=== PATIENT | female | born 1990 | race Caucasian/White ===

== ENCOUNTER 2017-05-11 21:39 | Emergency (ER) | payer MEDICAID ==
[2017-05-11 21:46] VITALS: BP 127/77; TEMP 98.4; O2SAT 99
[2017-05-11] MEDS ORDERED: Naproxen 550 mg Tab PO STA (22:30)
[2017-05-11] MEDS ORDERED: Naproxen 550 mg Tab PO ONE (22:50)
--- NOTE | 2017-05-11 22:57 | C.PDOC ---
Time Seen by Provider: 05/11/17 22:08 Chief Complaint (Nursing): Chest Pain History Per: Patient, Family Onset/Duration Of Symptoms: Days (1) Current Symptoms Are (Timing): Gone Context: Other (Pt had URI symptoms a few days ago that resolved) Severity: Moderate Quality: "Pain" Associated Symptoms: denies: Nausea, Dyspnea, Diaphoresis, Syncope Modifying Factors: Other Indicated Below Additional History Per: Prior Records Past Medical History Reviewed: Historical Data, Nursing Documentation, Vital Signs Vital Signs: Last Vital Signs Temp 98.4 F 05/11/17 21:43 Pulse 80 05/11/17 22:52 Resp 18 05/11/17 21:43 BP 127/77 05/11/17 21:43 Pulse Ox 99 05/11/17 21:43 - Medical History PMH: No Chronic Diseases Surgical History: No Surg Hx Family History: States: Diabetes, Hypertension - Social History Hx Tobacco Use: No Hx Alcohol Use: Yes Hx Substance Use: No - Immunization History Hx Tetanus Toxoid Vaccination: No Hx Influenza Vaccination: No Hx Pneumococcal Vaccination: No Review Of Systems Except As Marked, All Systems Reviewed And Found Negative. Constitutional: Negative for: Fever, Weakness Respiratory: Negative for: Hemoptysis Gastrointestinal: Negative for: Vomiting, Abdominal Pain Musculoskeletal: Negative for: Neck Pain, Leg Pain Skin: Negative for: Rash Neurological: Negative for: Weakness, Numbness, Seizures, Altered Mental Status Physical Exam - Physical Exam Appears: Non-toxic, No Acute Distress Skin: Normal Color, Warm, Dry, No Rash Head: Atraumatic, Normacephalic Eye(s): bilateral: Normal Inspection, PERRL, EOMI Neck: Normal ROM, Supple Cardiovascular: Rhythm Regular Respiratory: Normal Breath Sounds, No Accessory Muscle Use Gastrointestinal/Abdominal: Soft, No Tenderness Back: No CVA Tenderness Extremity: Normal ROM, No Pedal Edema, No Calf Tenderness Neurological/Psych: Oriented x3, Normal Motor, Normal Sensation ED Course And Treatment ECG: Interpreted By Me, Viewed By Me ECG Rhythm: Sinus Rhythm ECG Interpretation: No Acute Changes Rate From EC O2 Sat by Pulse Oximetry: 99 Pulse Ox Interpretation: Normal - Radiology CXR: Interpreted by Me, Viewed By Me CXR Interpretation: Yes: No Acute Disease, Heart Size (wnl) Reassessment Condition: Improved Medical Decision Making Medical Decision Making: PERC rule negative. Disposition Counseled Patient/Family Regarding: Studies Performed, Diagnosis, Need For Followup, Rx Given - Disposition Disposition: HOME/ ROUTINE Disposition Time: 22:59 Condition: IMPROVED Additional Instructions: Follow up with your doctor for further evaluation and treatment. Return to the ER if you develop worsening of symptoms or if you have any other concerns. Prescriptions: Naproxen [Naprosyn] 1 tab PO BID PRN #20 tab PRN Reason: Pain Instructions: Noncardiac Chest Pain (ED) - Clinical Impression Clinical Impression: Non-cardiac chest pain
[2017-05-11 23:17] VITALS: PULSE 76; RESP 20
--- NOTE | 2017-05-12 08:14 | RAD ---
HISTORY: Chest pain COMPARISON: No prior. FINDINGS: LUNGS: Mild venous congestion. Patchy bibasilar airspace opacities likely related to breast shadows. Bibasilar breast and nipple shadows. Correlation with nipple markers and or lateral view may be helpful. PLEURA: No significant pleural effusion identified, no pneumothorax apparent. CARDIOVASCULAR: Normal. OSSEOUS STRUCTURES: No significant abnormalities. VISUALIZED UPPER ABDOMEN: Normal. OTHER FINDINGS: None. IMPRESSION: Mild venous congestion. Patchy bibasilar airspace opacities likely related to breast shadows. Bibasilar breast and nipple shadows. Correlation with nipple markers and or lateral view may be helpful.
--- NOTE | 2017-05-12 10:59 | CARD ---
APPROVED REPORT EKG Measurement Heart [id number] <Conclusion> Normal sinus rhythm Normal ECG
== END 2017-05-11 23:16 | disposition home or self-care (01) ==
LOC: C.ER 21:39 → SUPCPDRO 21:39 → C.ER 23:16
DX: R07.89 Other chest pain (principal)

== ENCOUNTER 2017-08-20 15:45 | Emergency (ER) | payer SELFPAY ==
[2017-08-20 15:52] VITALS: BP 129/83; PULSE 76; RESP 18; TEMP 98.2; O2SAT 98
--- NOTE | 2017-08-20 16:24 | C.PDOC ---
History Of Present Illness 26-year-old female, presents to the emergency department with complaints of non- traumatic breast pain x1 day. Patients LMP on 07/31. States she used to be on control, but is no longer taking it. Denies fevers, chills, injury, redness, discharge, or any other associated symptoms. No other complaints at this time. Time Seen by Provider: 08/20/17 16:00 Chief Complaint (Nursing): Breast Problem History Per: Patient History/Exam Limitations: no limitations Onset/Duration Of Symptoms: Days (1) Current Symptoms Are (Timing): Still Present Severity: Moderate Past Medical History Reviewed: Historical Data, Nursing Documentation, Vital Signs Vital Signs: Last Vital Signs Temp 98.2 F 08/20/17 15:49 Pulse 76 08/20/17 15:49 Resp 18 08/20/17 15:49 BP 129/83 08/20/17 15:49 Pulse Ox 98 08/20/17 16:29 Family History: States: No Known Family Hx, Diabetes, Hypertension - Social History Hx Tobacco Use: No Hx Alcohol Use: Yes Hx Substance Use: No - Immunization History Hx Tetanus Toxoid Vaccination: No Hx Influenza Vaccination: No Hx Pneumococcal Vaccination: No Review Of Systems Except As Marked, All Systems Reviewed And Found Negative. Constitutional: Negative for: Fever, Chills Respiratory: Negative for: Shortness of Breath Gastrointestinal: Negative for: Vomiting, Abdominal Pain Genitourinary: Negative for: Vaginal Discharge, Vaginal Bleeding Musculoskeletal: Negative for: Back Pain Physical Exam - Physical Exam Appears: Non-toxic, No Acute Distress Skin: Warm, Dry, No Rash Head: Atraumatic, Normacephalic Eye(s): bilateral: Normal Inspection, PERRL Nose: Normal Oral Mucosa: Moist Neck: Normal ROM Chest: Symmetrical, No Tenderness, Other (No dimpling. No palpable masses. No redness or discharge. No lymphadenopathy) Gastrointestinal/Abdominal: Soft, No Tenderness Extremity: Normal ROM Neurological/Psych: Oriented x3, Normal Speech ED Course And Treatment O2 Sat by Pulse Oximetry: 98 Medical Decision Making Medical Decision Making: Impression: Breast pain Plan: Patient advised to take NSAIDs PRN, and follow-up with [facility] in 2 days. Patient advised to return if symptoms persist or worsen, All questions were answered. Disposition - Disposition Disposition: HOME/ ROUTINE Disposition Time: 16:24 Condition: IMPROVED Additional Instructions: follow up with your doctor in 2 days. call to make an appointemnt take advil or aleve as needed for pain return to hospital if symptoms worsens or progress Forms: [facility] (Slovak), Gen Discharge Inst Indonesian - Clinical Impression Clinical Impression: Breast pain - Scribe Statement The provider has reviewed the documentation as recorded by the Scribe (Chica David) All medical record entries made by the Scribe were at my direction and personally dictated by me. I have reviewed the chart and agree that the record accurately reflects my personal performance of the history, physical exam, medical decision making, and the department course for this patient. I have also personally directed, reviewed, and agree with the discharge instructions and disposition.
== END 2017-08-20 16:36 | disposition home or self-care (01) ==
LOC: C.ER 15:45
DX: N64.4 Mastodynia (principal)

== ENCOUNTER 2018-11-11 09:26 | Emergency (ER) | payer BC ==
--- NOTE | 2018-11-11 10:51 | C.PDOC ---
History Of Present Illness 28 year old female presents to the emergency department with complaints of cough, congestion, and body aches for the last two weeks. Patient denies fever, headache, nausea, vomiting. Patient also reports tripping and falling two days ago [place], resulting in injuring both of her knees. Time Seen by Provider: 11/11/18 10:01 Chief Complaint (Nursing): Flu-like Symptoms History Per: Patient History/Exam Limitations: no limitations Onset/Duration Of Symptoms: Other (two weeks) Current Symptoms Are (Timing): Still Present Associated Symptoms: Cough, Nasal Congestion, Other (body aches). denies: Fever, Nausea, Vomiting, Diarrhea Past Medical History Reviewed: Historical Data, Nursing Documentation, Vital Signs Vital Signs: Last Vital Signs Temp 99.9 F H 11/11/18 09:40 Pulse 104 H 11/11/18 09:40 Resp 20 11/11/18 09:40 BP 122/78 11/11/18 09:40 Pulse Ox 97 11/11/18 09:40 - Medical History PMH: No Chronic Diseases Surgical History: No Surg Hx Family History: States: Diabetes, Hypertension - Social History Hx Tobacco Use: No Hx Alcohol Use: Yes Hx Substance Use: No - Immunization History Hx Tetanus Toxoid Vaccination: No Hx Influenza Vaccination: No Hx Pneumococcal Vaccination: No Review Of Systems Except As Marked, All Systems Reviewed And Found Negative. ENT: Positive for: Nose Congestion Respiratory: Positive for: Cough Musculoskeletal: Positive for: Leg Pain (bilateral knee pain), Other (body aches) Physical Exam - Physical Exam Appears: Non-toxic, No Acute Distress Skin: Normal Color, Warm, Dry Head: Atraumatic, Normacephalic Eye(s): bilateral: Normal Inspection, PERRL, EOMI Nose: Normal Oral Mucosa: Moist Throat: Normal, No Erythema Neck: Normal, Supple Chest: Symmetrical, No Tenderness Cardiovascular: Rhythm Regular, No Murmur Respiratory: Normal Breath Sounds, No Rales, No Rhonchi, No Wheezing Gastrointestinal/Abdominal: Normal Exam, Soft, No Tenderness Extremity: Normal ROM, Tenderness (bilateral anterior knee tenderness), No Deformity, Swelling (mild bilateral anterior knee swelling) Neurological/Psych: Oriented x3, Normal Speech, Normal Cognition ED Course And Treatment O2 Sat by Pulse Oximetry: 97 (RA) Pulse Ox Interpretation: Normal - Other Rad XR B/L Knees X-Ray: Viewed By Me, Read By Radiologist Interpretation: Negative for fractures or dislocations. Medical Decision Making Medical Decision Making: Plan: Motrin 600mg PO Zithromax 500mg PO POC Urine XR B/L Knees Assessment: Bronchitis Disposition Counseled Patient/Family Regarding: Studies Performed, Diagnosis, Need For Followup, Rx Given - Disposition Referrals: Pily Sharp MD [Medical Doctor] - Disposition: HOME/ ROUTINE Disposition Time: 10:49 Condition: STABLE Additional Instructions: follow up with your doctor within 2 days call to make an appointment take medications as prescribed return to ER if symptoms worsens or progress Prescriptions: Albuterol HFA [Ventolin HFA 90 mcg/actuation (8 g)] 2 puff IH [id number] #1 puff Azithromycin [Zithromax] 250 mg PO DAILY #4 tab Benzonatate [Tessalon Perles] 100 mg PO BID PRN #14 tab PRN Reason: Cough Naproxen [Naprosyn] 500 mg PO BID PRN #16 tab PRN Reason: Pain, Moderate (4-7) Instructions: Acute Bronchitis, Adult (DC), Contusion (DC) Forms: [facility] (Latvian), General Discharge Instructions - Clinical Impression Clinical Impression: Bronchitis, Contusion - Scribe Statement The provider has reviewed the documentation as recorded by the Scribe (Valeriy Walker) Provider Attestation: All medical record entries made by the Scribe were at my direction and personally dictated by me. I have reviewed the chart and agree that the record accurately reflects my personal performance of the history, physical exam, medical decision making, and the department course for this patient. I have also personally directed, reviewed, and agree with the discharge instructions and disposition.
[2018-11-11 11:01] VITALS: BP 123/79; PULSE 78; RESP 16; TEMP 98.6
--- NOTE | 2018-11-11 11:48 | RAD ---
Date of service: 11/11/2018 PROCEDURE: Bilateral Knee Radiographs. HISTORY: Fall COMPARISON: None. FINDINGS: BONES: Bone alignment and mineralization are normal. There is no acute displaced fracture or bone destruction. JOINTS: The joint spaces are preserved SOFT TISSUES: Right Knee: Normal. Left Knee: Normal. JOINT EFFUSION: Small suprapatellar joint effusions. OTHER FINDINGS: None. IMPRESSION: No acute displaced fracture or dislocation.
[2018-11-11 13:42] VITALS: O2SAT 97
== END 2018-11-11 11:00 | disposition home or self-care (01) ==
LOC: C.ER 09:26
DX: J40 Bronchitis, not specified as acute or chronic (principal); S80.00XA Contusion of unspecified knee, initial encounter; W01.0XXA Fall on same level from slipping, tripping and stumbling without subsequent striking against object, initial encounter; Y93.01 Activity, walking, marching and hiking; Y92.59 Other trade areas as the place of occurrence of the external cause

== ENCOUNTER 2018-11-15 12:13 | Outpatient (CLI) | payer BC | END 2018-11-15 12:14 | disposition home or self-care (01) | LOC: C.RADIC 12:13 | DX: T14.8XXA Other injury of unspecified body region, initial encounter (principal) ==